=== PATIENT | male | born 1955 | race Asian ===

== ENCOUNTER 2017-07-18 17:24 | Emergency (ER) | payer OTHER ==
[~2017-07-18] VITALS: Ht 170.2 cm; Wt 87.3 kg
[~2017-07-18 17:24] MED LIST: FISH OIL PO; MULT-1259 PO; ROSU10 PO
[2017-07-18] MEDS ORDERED: MECL12.585 PO (17:53)
[2017-07-18] MEDS ORDERED: INDO50 PO (17:53)
[2017-07-18] MEDS ORDERED: KETOROLAC TROMETHAMINE 60 MG/2 ML VIAL IM ONE (19:45)
[2017-07-18 19:49] VITALS: BP 145/96
== END 2017-07-18 20:29 | disposition home or self-care (01) ==
LOC: EMS 17:25
DX: M10.9 Gout, unspecified (principal); E78.00 Pure hypercholesterolemia, unspecified; F17.210 Nicotine dependence, cigarettes, uncomplicated
CPT/HCPCS: 96372; 99283; J1885

== ENCOUNTER 2017-10-30 15:15 | Emergency (ER) | payer OTHER ==
[~2017-10-30] VITALS: Ht 170.2 cm; Wt 86.4 kg
[~2017-10-30 15:15] MED LIST changes: +INDO50 PO; +MECL12.585 PO
[2017-10-30 17:39] VITALS: BP 143/98
== END 2017-10-30 17:39 | disposition home or self-care (01) ==
LOC: EMS 15:19
DX: H60.93 Unspecified otitis externa, bilateral (principal); R03.0 Elevated blood-pressure reading, without diagnosis of hypertension; E78.00 Pure hypercholesterolemia, unspecified; F17.210 Nicotine dependence, cigarettes, uncomplicated
CPT/HCPCS: 99283

== ENCOUNTER 2018-04-02 07:45 | Emergency (ER) | payer OTHER ==
[~2018-04-02] VITALS: Ht 170.2 cm; Wt 89.1 kg
[2018-04-02 09:00] VITALS: BP 141/107
[2018-04-02] MEDS ORDERED: CETIRIZINE HCL 10 MG TABLET PO ONE (10:30)
[2018-04-02] MEDS ORDERED: PredniSONE 20 MG TABLET PO ONE (10:30)
== END 2018-04-02 11:29 | disposition home or self-care (01) ==
LOC: EMS 07:47
DX: R21 Rash and other nonspecific skin eruption (principal); R03.0 Elevated blood-pressure reading, without diagnosis of hypertension; E78.00 Pure hypercholesterolemia, unspecified; F17.210 Nicotine dependence, cigarettes, uncomplicated
CPT/HCPCS: 99283; J7512

== ENCOUNTER 2019-11-14 18:18 | Emergency (ER) | payer OTHER, BC ==
[~2019-11-14] VITALS: Ht 172.7 cm; Wt 87.3 kg
[~2019-11-14 18:18] MED LIST changes: -INDO50 PO; +INDO50CA98 PO; +MECL-184 PO; -MECL12.585 PO; -ROSU10 PO; +ROSU10TA22 PO
[2019-11-14 18:41] VITALS: BP 107/75
== END 2019-11-14 22:00 | disposition left against medical advice (07) ==
LOC: EMS 18:20
DX: R50.9 Fever, unspecified (principal); Z53.21 Procedure and treatment not carried out due to patient leaving prior to being seen by health care provider

== ENCOUNTER 2019-11-26 02:04 | Emergency (ER) | payer BC, OTHER ==
[~2019-11-26] VITALS: Ht 172.7 cm; Wt 88.2 kg
[2019-11-26] MEDS ORDERED: SODIUM CHLORIDE 0.9% 100 ML ONE (03:05)
[2019-11-26] MEDS ORDERED: IOVERSOL 350 MG/ML 100 ML VIAL ONE (03:05)
[2019-11-26] MEDS ORDERED: SODIUM CHLORIDE 0.9% 1,000 ML IV ONE (03:15)
[2019-11-26] MEDS ORDERED: ONDANSETRON HCL 4 MG/2 ML VIAL IVP ONE (03:15)
[2019-11-26] MEDS ORDERED: KETOROLAC TROMETHAMINE 30 MG/ML VIAL IVP ONE (03:15)
[2019-11-26 03:22] LABS: CALCIUM, TOTAL 8.8 mg/dL (8.8-10.5); CREATININE 1.58 mg/dL (0.60-1.30); POTASSIUM 4.1 mmol/L (3.5-5.1)
[2019-11-26 03:28] LABS: ALBUMIN 3.7 g/dL (3.4-5.0); BILIRUBIN,TOTAL 0.4 mg/dL (0.1-1.0); TOTAL PROTEIN, SERUM 7.7 g/dL (6.4-8.2)
[2019-11-26 03:30] LABS: BASOPHILS % (AUTO) 0.5 % (0.0-2.0); HEMATOCRIT 46.1 % (41-53); HEMOGLOBIN 15.6 g/dL (13.5-17.5); LYMPHOCYTES # (AUTO) 1.7 K/uL (1.0-4.8); LYMPHOCYTES % (AUTO) 11.3 % (22.0-44.0); MEAN CORPUSCULAR HEMOGLOBIN 30.1 pg (26.0-34.0); MEAN CORPUSCULAR HGB CONC 33.8 G/dL (31.0-37.0); MEAN CORPUSCULAR VOLUME 89 fL (80-100); MONOCYTES # (AUTO) 0.9 K/uL (0.1-1.0); MONOCYTES % (AUTO) 6.3 % (2.0-9.0); NEUTROPHILS % (AUTO) 80.9 % (40.0-70.0); PLATELET COUNT (AUTO) 325 K/uL (150-450); RED BLOOD CELL COUNT(AUTO) 5.17 MIL/uL (4.50-5.90); RED CELL DISTRIBUTION WIDTH 13.4 % (11.5-14.5)
[2019-11-26 04:25] LABS: APPEARANCE,URINE CLEAR (CLEAR); BILIRUBIN,URINE NEGATIVE (NEGATIVE); GLUCOSE, URINE (UA) NEGATIVE (NEGATIVE); KETONES,URINE NEGATIVE (NEGATIVE); LEUKOCYTE ESTERASE ,URINE NEGATIVE (NEGATIVE); NITRATE,URINE NEGATIVE (NEGATIVE); OCCULT BLOOD,URINE MODERATE (NEGATIVE); PH,URINE 6.5 (5.0-8.0); PROTEIN,URINE NEGATIVE (NEGATIVE); UROBILINOGEN,URINE 0.2 mg/dL (<=1.0)
[2019-11-26 04:37] LABS: BACTERIA,URINE None Seen /HPF (None Seen); SQUAMOUS EPITHELIAL CELL,UR Rare /LPF (None Seen); WBC,URINE 0-2 /HPF (0-5)
[2019-11-26 06:17] VITALS: BP 128/82
== END 2019-11-26 06:37 | disposition home or self-care (01) ==
LOC: EMS 02:04
DX: N20.1 Calculus of ureter (principal); N28.9 Disorder of kidney and ureter, unspecified; R11.10 Vomiting, unspecified; I10 Essential (primary) hypertension; E78.00 Pure hypercholesterolemia, unspecified
CPT/HCPCS: 36415; 74177; 80053; 81001; 83690; 85025; 96361; 96374; 96375; 99284; J1885; J2405; J7030; J7050; Q9967

== ENCOUNTER 2020-10-27 09:48 | Emergency (ER) | payer OTHER ==
[~2020-10-27] VITALS: Ht 172.7 cm; Wt 79.5 kg
[~2020-10-27 09:48] MED LIST changes: -MECL-184 PO
[2020-10-27] MEDS ORDERED: COLCHICINE 0.6 MG TABLET PO ONE (11:30)
[2020-10-27 12:40] VITALS: BP 143/88
== END 2020-10-27 12:46 | disposition home or self-care (01) ==
LOC: EMS 09:55
DX: M10.9 Gout, unspecified (principal); E78.00 Pure hypercholesterolemia, unspecified; I10 Essential (primary) hypertension